=== PATIENT | male | born 1965 | race Caucasian/White ===

== ENCOUNTER 2019-12-30 11:00 | Outpatient (RCR) | payer MEDICARE, SELFPAY | END 2020-01-19 08:12 | disposition home or self-care (01) | LOC: PT.CARL 11:00 | PROVIDERS: Visit Provider Orthopaedic Surgery | DX: Z96.641 Presence of right artificial hip joint (principal); M25.561 Pain in right knee | CPT/HCPCS: 97110; 97116; 97163 ==

== ENCOUNTER 2021-10-18 13:00 | Outpatient (RCR) | payer MEDICARE, SELFPAY | END 2021-12-07 16:43 | disposition home or self-care (01) | LOC: PT.CARL 13:00 | PROVIDERS: Visit Provider Orthopaedic Surgery | DX: M16.12 Unilateral primary osteoarthritis, left hip (principal); Z96.642 Presence of left artificial hip joint | CPT/HCPCS: 97110; 97116; 97163; 97530 ==